=== PATIENT | male | born 1955 | race Caucasian/White ===

== ENCOUNTER 2018-10-12 20:25 | Emergency (ER) | payer BC ==
--- NOTE | 2018-10-12 20:49 | EDM.PDOC ---
ED HPI GENERAL MEDICAL PROBLEM - General Chief Complaint: Respiratory Problem Stated Complaint: SOB Time Seen by Provider: 10/12/18 20:40 Source of Information: Reports: Patient History Limitations: Reports: No Limitations - History of Present Illness INITIAL COMMENTS - FREE TEXT/NARRATIVE: States that he was in to see Yg Choudhary yesterday and was started on z-feliciano and prednisone. He was out shoveling tonight and became SOB with it. Denies any chest pain with it. States that it feels like he has to cough but can't get it up as it sticks in his throat. While here he had a right sided discomfort that lasted "a second" and was gone. He states that he did sweat while shoveling. He has not had a fever at all. Currently he has a feeling in his throat like he has to cough something up but it is stuck. What he does cough up is white. He did stop smoking 06/15/18 and this has been occurring since then. He does have some hoarseness which he states has been ongoing. Onset: Today Location: Reports: Other (throat) Context: Reports: Activity Associated Symptoms: Reports: Cough, Diaphoresis. Denies: Fever/Chills - Related Data Allergies Allergy/AdvReac Type Severity Reaction Status Date / Time amoxicillin Allergy Rash Verified 10/12/18 20:29 doxycycline Allergy Cannot Verified 10/12/18 20:29 Remember Home Meds: Home Meds Azithromycin [Zithromax] 250 mg PO DAILY 10/12/18 [History] predniSONE 20 mg PO DAILY 10/12/18 [History] Past Medical History - Past Health History Medical/Surgical History: Denies Medical/Surgical History Social & Family History - Family History Cardiac: Reports: CAD (2 brothers), High Cholesterol (brothers), Hypertension ( brothers) - Tobacco Use Smoking Status *Q: Former Smoker Used Tobacco, but Quit: Yes Month/Year Tobacco Last Used: approx 4 months ago Second Hand Smoke Exposure: No ED ROS GENERAL - Review of Systems Review Of Systems: See Below Constitutional: Reports: No Symptoms HEENT: Reports: No Symptoms Respiratory: Reports: Shortness of Breath, Cough Cardiovascular: Reports: No Symptoms GI/Abdominal: Reports: No Symptoms Musculoskeletal: Reports: No Symptoms Skin: Reports: No Symptoms Neurological: Reports: No Symptoms ED EXAM, GENERAL - Physical Exam Exam: See Below Exam Limited By: No Limitations General Appearance: Alert, WD/WN, No Apparent Distress Ears: Normal External Exam, Normal Canal, Normal TMs Nose: Normal Inspection Throat/Mouth: Normal Inspection, Normal Oropharynx, No Airway Compromise, Other (voice is scratchy.) Head: Atraumatic, Normocephalic Neck: Normal Inspection, Supple, Non-Tender, Full Range of Motion Respiratory/Chest: No Respiratory Distress, Lungs Clear, Normal Breath Sounds Cardiovascular: Regular Rate, Rhythm, No Edema GI/Abdominal: Normal Bowel Sounds, Soft, Non-Tender, No Organomegaly Back Exam: Normal Inspection, Full Range of Motion Extremities: Normal Inspection, Normal Range of Motion, Non-Tender, No Pedal Edema, Normal Capillary Refill Neurological: Alert, Oriented Skin Exam: Warm, Dry, Intact Course - Vital Signs Last Recorded V/S: Last Vital Signs Temp 98.0 F 10/12/18 20:27 Pulse 103 H 10/12/18 20:27 Resp 20 10/12/18 20:27 BP 149/94 H 10/12/18 20:27 Pulse Ox 98 10/12/18 20:27 - Orders/Labs/Meds Orders: Active Orders 24 hr Category Date Time Status EKG Documentation Completion [RC] STAT Care 10/12/18 20:57 Active EKG 12 Lead [EK] Stat Ther 10/12/18 20:39 Ordered Labs: Laboratory Tests 10/12/18 10/12/18 10/12/18 Range/Units 21:08 21:08 21:08 WBC 10.5 H (5.0-10.0) 10^3/uL RBC 4.73 (4.50-6.00) 10^6/uL Hgb 15.2 (14.0-18.0) g/dL Hct 43.4 (40.0-54.0) % MCV 91.8 (82.0-94.0) fL MCH 32.1 H (27.0-32.0) pg MCHC 35.0 (33.0-38.0) g/dL RDW Coeff of [place] 12.8 (11.0-15.0) % Plt Count 311 (150-400) 10^3/uL Neut % (Auto) 80.8 (35-85) % Lymph % (Auto) 11.6 (10-55) % [place] % (Auto) 7.4 (0-16) % Eos % (Auto) 0 (0-5) % Baso % (Auto) 0.2 (0-3) % Neut # (Auto) 8.46 H (1.80-7.00) 10^3/uL Lymph # (Auto) 1.21 (1.00-4.80) 10^3/uL [place] # (Auto) 0.77 (0.00-0.80) 10^3/uL Eos # (Auto) 0.00 (0.00-0.45) 10^3/uL Baso # (Auto) 0.02 10^3/uL D-Dimer, Quantitative < 0.19 (0.00-0.50) Sodium 142 (136-145) mEq/L Potassium 3.9 (3.5-5.0) mEq/L Chloride 106 (98-106) mEq/L Carbon Dioxide 26 (21-32) mmol/L BUN 18 (7-18) mg/dL Creatinine 1.0 (0.7-1.3) mg/dL Est Cr Clr Drug Dosing 79.08 mL/min Estimated GFR (MDRD) > 60 (>=60) mL/min Glucose 149 H (75-99) mg/dL Calcium 8.9 (8.4-10.1) mg/dL Lactate Dehydrogenase 160 (100-190) U/L Creatine Kinase 96 (35-232) U/L Troponin I < 0.017 (0.00-0.06) ng/mL - Re-Assessments/Exams Free Text/Narrative Re-Assessment/Exam: 10/12/18 21:30 In to discuss that he has normal EKG and lab work including D- dimer, cardiac enzymes, and CBC, and panel. Will discharge at this time. Departure - Departure Time of Disposition: 21:31 Disposition: Home, Self-Care 01 Condition: Good Clinical Impression: Sinusitis Qualifiers: Sinusitis location: maxillary Chronicity: acute Recurrence: non-recurrent Qualified Code(s): J01.00 - Acute maxillary sinusitis, unspecified - Discharge Information *PRESCRIPTION DRUG MONITORING PROGRAM REVIEWED*: Not Applicable *COPY OF PRESCRIPTION DRUG MONITORING REPORT IN PATIENT MELY: Not Applicable Instructions: Shortness of Breath, Adult, [id number] Referrals: Milind Choudhary PA-C [Primary Care Provider] - Forms: ED Department Discharge Additional Instructions: continue taking the meds that were given to you yesterday. If any new concerns or changes then call the clinic or hospital. - Problem List & Annotations (1) Sinusitis SNOMED Code(s): 96049597 Code(s): J32.9 - CHRONIC SINUSITIS, UNSPECIFIED Status: Acute Current Visit: Yes Qualifiers: Sinusitis location: maxillary Chronicity: acute Recurrence: non- recurrent Qualified Code(s): J01.00 - Acute maxillary sinusitis, unspecified - Problem List Review Problem List Initiated/Reviewed/Updated: Yes - My Orders Last 24 Hours: My Active Orders 10/12/18 20:39 EKG 12 Lead [EK] Stat 10/12/18 20:57 EKG Documentation Completion [RC] STAT - Assessment/Plan Last 24 Hours: My Active Orders 10/12/18 20:39 EKG 12 Lead [EK] Stat 10/12/18 20:57 EKG Documentation Completion [RC] STAT
[2018-10-12 21:25] LABS: CHLORIDE,CL 106 mEq/L (98-106); SODIUM,NA 142 mEq/L (136-145)
== END 2018-10-12 21:35 | disposition home or self-care (01) ==
LOC: CC.ED 20:25
DX: J01.00 Acute maxillary sinusitis, unspecified (principal); Z88.1 Allergy status to other antibiotic agents; Z87.891 Personal history of nicotine dependence
CPT/HCPCS: 36415; 80048; 82550; 83615; 84484; 85025; 85379; 93005; 99285